=== PATIENT | male | born 1985 | race Caucasian/White ===

== ENCOUNTER 2017-04-07 21:39 | Emergency (ER) | payer BC, OTHER ==
[~2017-04-07] VITALS: Ht 175.3 cm; Wt 100.5 kg
[~2017-04-07 21:39] MED LIST: CYCL-319 PO; IBUP800T25 PO
[2017-04-07 21:42] VITALS: Ht 175.3 cm; Wt 100.5 kg
[2017-04-07] MEDS ORDERED: KETOROLAC 15 MG INJ IM STA (23:13)
--- NOTE | 2017-04-07 23:13 | ERD ---
ER Documentation Chief Complaint Date/Time DATE: 04/07/17 TIME: 23:08 Chief Complaint Pt reports hx of shoulder dislocation, pt put in place at home HPI This 31-year-old male patient presents to emergency department today for right shoulder pain. Patient reports that he dislocated his right shoulder today while getting up from his girlfriend's massage table. He was able to put shoulder back in place but reports limited range of motion in pain. Patient reports pain is 8/10 on pain scale, described as sharp, patient is able to move her fingers, and rotate wrist, but has pain with internal and external rotation. Patient reports he has remote history of dislocated shoulder one other time. Patient denies numbness or tingling to fingers, denies change in sensation or weakness of handgrip. ROS All systems reviewed and are negative except as per history of present illness. Medications Home Meds Active Scripts Cyclobenzaprine Hcl* (Cyclobenzaprine Hcl*) 10 Mg Tablet, 10 MG PO TID, #20 TAB Prov:RACHEAL FELIX PA-C 03/03/16 Ibuprofen* (Motrin*) 800 Mg Tab, 800 MG PO Q6H Y for PAIN AND OR ELEVATED TEMP, #30 TAB Prov:RACHEAL FELIX PA-C 03/03/16 Allergies Allergies: Coded Allergies: No Known Drug Allergies (Verified Allergy, Unknown, 03/03/16) PMhx/Soc Hx Alcohol Use: Yes (occassional) Hx Substance Use: No Hx Tobacco Use: No Physical Exam Vitals Vital Signs Date Time Temp Pulse Resp B/P Pulse Ox O2 Delivery O2 Flow Rate FiO2 04/07/17 21:42 98.7 85 18 140/50 95 Vitals stable, triage notes reviewed Physical Exam Const: No acute distress Head: Atraumatic Eyes: Normal Conjunctiva ENT: Normal External Ears, Nose and Mouth. Neck: Full range of motion..~ No meningismus. Resp: Clear to auscultation bilaterally Cardio: Regular rate and rhythm, no murmurs Abd: Soft, non tender, non distended. Normal bowel sounds Skin: No petechiae or rashes Back: No midline or flank tenderness Ext: Upper Extremity -right shoulder Skin: No laceration, or evidence of external trauma Compartments: Soft Motor: patient is able to internally and externally rotate , pain with external rotation. Sensation: intact shoulder/pinky/middle finger/thumb web space Bones: Anterior humeral tenderness. Snuffbox: Joints: No effusion Pulses/Perfusion: 2+ radial, Capillary refill < 2 seconds Neur: Awake and alert Psych: Normal Mood and Affect Results 24 hrs Current Medications Medications (Trade) Dose Ordered Sig/Seun Route PRN Reason Start Time Stop Time Status Last Admin Dose Admin Ketorolac Tromethamine (Toradol) 15 mg ONCE STAT IM 04/07/17 23:13 04/07/17 23:16 DC 04/07/17 23:19 Acetaminophen (Tylenol Tab) 650 mg ONCE ONCE PO 04/07/17 23:30 04/07/17 23:31 DC 04/07/17 23:19 Procedures/MDM PROCEDURE: XR Right Shoulder. CLINICAL INDICATION: Trauma. Right shoulder pain. History of right shoulder dislocation. TECHNIQUE: Three views. Frontal internal rotation, frontal external rotation , and scapular Y-view. COMPARISON: No prior study is available for comparison. FINDINGS: There is no fracture or dislocation. The soft tissues are normal. Articular surfaces are intact. There is no lytic or blastic lesion. There is no radiopaque foreign body. IMPRESSION: 1. Normal images of the right shoulder. .Jacques Jose MD, MD Date Time Electronically viewed and signed by .Jacques Jose MD, on 04/08/2017 00:09 This 31-year-old male patient presents to emergency department today after spontaneous dislocated right shoulder with manual reduction by patient at home prior to coming into emergency department. Patient reports pain with internal and external rotation, denies numbness or tingling to fingertips or change in hand cramps or strength. Pain is 8/10 on pain scale. X-ray obtained to evaluate joint spaces. Impression as follows normal images of the right shoulder. There is no fracture or dislocation, the soft tissues are normal, articular surfaces are intact, there is no lytic or blastic lesion. There is no radio opaque foreign body. Patient treated with Toradol 15 mg intramuscularly and 650 mg Tylenol with decreased sensation of pain. Patient will be discharged home with Naprosyn 1 tab p.o. twice daily 10 days, activity restriction as tolerated, rest, ice, return to emergency department if shoulder dislocates again. I feel the patient is stable for discharge at this time. I have discussed results, examination findings, the treatment plan with the patient and family present prior to discharge. Indications for emergent reevaluation, side effects of medication were also discussed. All questions were answered. Patient verbalizes understanding and agrees with plan of care. Departure Diagnosis: Primary Impression: Shoulder pain Laterality: right Chronicity: acute Qualified Code: M25.511 - Acute pain of right shoulder Condition: Good Patient Instructions: Shoulder Pain (Uncertain Cause) Additional Instructions: Thank you for for coming to [facility] for your care today. Please ask your nurse or provider if you have questions about your care today and do not leave until all your questions have been answered. Please use any medications given as directed and follow-up with your doctor (or the doctor you were referred to) in the next 2-3 days. If you do not have a primary care doctor you may follow up at the [facility] (listed below). You may also use motrin and tylenol as needed for fever and/or pain unless instructed otherwise by your provider or nurse. Indications for more urgent follow-up have been discussed, but you may return to the Emergency Department at ANY time for any worrisome or worsening symptoms. If you have abdominal pain, please know that no test or exam you received is perfect and you should follow up within 8 hours for continued pain. If you had any imaging studies today, such as an X-Ray or CT Scan, these studies will be reviewed later by a radiologist. You will be called if there are important findings that were not identified today, so make sure the contact information you provided at registration is correct. If you received any narcotic pain control medicine today, such as Vicodin, Morphine or Dilaudid, your coordination and judgment may be affected for a number of hours. Please do not drive or operate heavy machinery, and you may want someone to assist you at home. If you were given a prescription for narcotic medication, be aware that it is very addictive- use sparingly and only if necessary. KEYONNA MEYER April 07, 2017 23:13
[2017-04-07] MEDS ORDERED: ACETAMINOPHEN 325 MG TAB PO ONE (23:30)
--- NOTE | 2017-04-08 00:09 | RADRPT ---
PROCEDURE: XR Right Shoulder. CLINICAL INDICATION: Trauma. Right shoulder pain. History of right shoulder dislocation. TECHNIQUE: Three views. Frontal internal rotation, frontal external rotation, and scapular Y-view . COMPARISON: No prior study is available for comparison. FINDINGS: There is no fracture or dislocation. The soft tissues are normal. Articular surfaces are intact. There is no lytic or blastic lesion. There is no radiopaque foreign body. IMPRESSION: 1. Normal images of the right shoulder. RPTAT: QQ .Jacques Jose MD, MD Date Time Electronically viewed and signed by .Jacques Jose MD, MD on 04/08/2017 00:09 .R/
[2017-04-08] MEDS ORDERED: NAPR-260 PO (00:30)
[2017-04-08 00:50] VITALS: PULSE 67; RESP 20; TEMP 98.8
== END 2017-04-08 00:49 | disposition home or self-care (01) ==
LOC: FTE 21:39
DX: M25.511 Pain in right shoulder (principal)
CPT/HCPCS: 73030; J1885; Z7610; 96372